=== PATIENT | male | born 1965 | race Caucasian/White ===

== ENCOUNTER → 2022-03-21 10:49 | Outpatient (BNVA) | payer MEDICAID, SELFPAY | PROVIDERS: Referring Provider Internal Medicine; Visit Provider Internal Medicine | DX: R23.2 Flushing (principal); R19.7 Diarrhea, unspecified | CPT/HCPCS: 99204 ==

== ENCOUNTER → 2022-05-16 10:53 | Outpatient (BNVA) | payer MEDICAID, SELFPAY | PROVIDERS: PCP Family Medicine; Visit Provider Internal Medicine | DX: R19.7 Diarrhea, unspecified (principal); R23.2 Flushing; R79.89 Other specified abnormal findings of blood chemistry | CPT/HCPCS: 99214 ==

== ENCOUNTER → 2022-06-13 10:53 | Outpatient (BNVA) | payer MEDICAID, SELFPAY | PROVIDERS: PCP Family Medicine; Visit Provider Internal Medicine | DX: R23.2 Flushing (principal); R19.7 Diarrhea, unspecified; R79.89 Other specified abnormal findings of blood chemistry | CPT/HCPCS: 36415; 80053; 80061; 82533; 84146; 84403; 85025; 99214 ==

== ENCOUNTER → 2022-06-28 11:10 | Outpatient (BNVA) | payer MEDICAID, SELFPAY | PROVIDERS: Visit Provider Internal Medicine | DX: R23.2 Flushing (principal); R19.7 Diarrhea, unspecified; R79.89 Other specified abnormal findings of blood chemistry; G47.33 Obstructive sleep apnea (adult) (pediatric) | CPT/HCPCS: 99213; 99214 ==